=== PATIENT | female | born 1955 | race Two or more races ===

== ENCOUNTER 2018-11-25 10:21 | Emergency (ER) | payer SELFPAY ==
[2018-11-25 10:26] VITALS: BMI 20.7
[2018-11-25] MEDS ORDERED: ACETAMINOPHEN 1000 MG/100 ML VIAL (NON FORMULARY) IVPB ONE (10:57)
[2018-11-25] MEDS ORDERED: SODIUM CHLORIDE 1,000 ML IV STA (10:57)
--- NOTE | 2018-11-25 11:38 | PDOC ---
Documentation entered by Heather Gagnon SCRIBE, acting as scribe for Arun Flores MD. Arun Flores MD: This documentation has been prepared by the Kalin lópez Sammi, SCRIBE, under my direction and personally reviewed by me in its entirety. I confirm that the documentation accurately reflects all work, treatment, procedures, and medical decision making performed by me. History of Present Illness - General Chief Complaint: Pain, Acute Stated Complaint: ABD. PAIN Time Seen by Provider: 11/25/18 10:38 - History of Present Illness Initial Comments: 11/25/18 10:58 The patient is a 63 year old female who presents to the emergency department for evaluation of constant left sided abdominal pain for 3 days. Pt reports subjective fever. Denies nausea, vomiting, or diarrhea. Denies urinary changes. The patient also reports diffuse bodyaches. Denies chest pain or SOB. The patient was first evaluated at [address] [place] [address] and was sent to the ED for further testing. No prior abdominal surgeries. No flank pain. Denies TREVIÑO/neck pain. PCP: [address] [place] [address] Medical history: DM, HTN Allergies: NKA Past History - Past Medical History Allergies/Adverse Reactions: Allergies Allergy/AdvReac Type Severity Reaction Status Date / Time No Known Allergies Allergy Verified 11/25/18 10:28 Home Medications: Ambulatory Orders Alogliptin Benzoate [Alogliptin] 25 mg PO DAILY 11/25/18 Glipizide 0 mg PO BID 11/25/18 COPD: No Diabetes: Yes - Suicide/Smoking/Psychosocial Hx Smoking History: Never smoked Hx Alcohol Use: No Drug/Substance Use Hx: No Review of Systems - Review of Systems Comments:: 11/25/18 10:59 GENERAL/CONSTITUTIONAL: (+)subjective fever. No weakness. HEAD, EYES, EARS, NOSE AND THROAT: No change in vision. No ear pain or discharge. No sore throat. CARDIOVASCULAR: No chest pain, no shortness of breath, no loss of consciousness RESPIRATORY: No cough, wheezing, or hemoptysis. GASTROINTESTINAL: (+) abdominal pain. No nausea, vomiting, diarrhea or constipation. GENITOURINARY: No dysuria, frequency, or change in urination. MUSCULOSKELETAL: (+) bodyaches SKIN: No rash NEUROLOGIC: No vertigo, no change in strength/sensation. *Physical Exam - Vital Signs Last Vital Signs Temp Pulse Resp BP Pulse Ox 102.1 F H 103 H 16 150/64 100 11/25/18 10:23 11/25/18 10:23 11/25/18 10:23 11/25/18 10:23 11/25/18 10:23 - Physical Exam Comments: 11/25/18 12:27 GENERAL: Awake, alert, and fully oriented, in no acute distress. HEAD: No signs of trauma EYES: PERRLA, EOMI, sclera anicteric, conjunctiva clear ENT: Auricles normal inspection, hearing grossly normal, nares patent, oropharynx clear without exudates. Moist mucosa NECK: Nontender, no stepoffs, Normal ROM, supple, no lymphadenopathy, JVD, or masses LUNGS: Breath sounds equal, clear to auscultation bilaterally. No wheezes, and no crackles HEART: Regular rate and rhythm, normal S1 and S2, no murmurs, rubs or gallops ABDOMEN: + RLQ TTP, normoactive bowel sounds. No guarding, no rebound. No masses EXTREMITIES: Normal range of motion, no edema. No clubbing or cyanosis. No cords, erythema, or tenderness NEUROLOGICAL: Cranial nerves II through XII intact. 5/5 strength and sensation in all extremities, Normal speech, normal gait, normal cerebellar function SKIN: Warm, Dry, normal turgor, no rashes or lesions noted. ED Treatment Course - LABORATORY CBC & Chemistry Diagram: 11/25/18 11:48 11/25/18 11:48 Medical Decision Making - Medical Decision Making 11/25/18 12:27 63 F with abdominal pain. Pt febrile in ED. Exam notable for RLQ tenderness. - Labs, cultures - CTAP 11/25/18 16:28 UA consistent with UTI Labs otherwise wnl CT shows likely cystitis Will DC with abx Pt is well appearing, with normal vitals. Clinically stable for DC at this time. I discussed the physical exam findings, ancillary test results and final diagnoses with the patient. I answered all of the patient's questions. The patient was satisfied with the care received and felt comfortable with the discharge plan and treatment plan. The patient agrees to follow up with the primary care physician within 24-72 hours. *DC/Admit/Observation/Transfer Diagnosis at time of Disposition: Abdominal pain, Fever, UTI (urinary tract infection) - Discharge Dispostion Disposition: HOME - Referrals - Patient Instructions Printed Discharge Instructions: DI for Urinary Tract Infection (UTI) Additional Instructions: You have a urine infection. Take the antibiotics as prescribed to treat it. If you experience worsening abdominal pain, fevers, vomiting, or any other concerning symptoms, return to the ER immediately. Otherwise, follow up with your primary doctor within 48 hours. - Post Discharge Activity - Attestations Physician Attestion: 11/25/18 16:32 I, Dr. Arun Flores MD, attest that this document has been prepared under my direction and personally reviewed by me in its entirety. I further attest, that it accurately reflects all work, treatment, procedures and medical decision -making performed by me.
[2018-11-25] MEDS ORDERED: ACETAMINOPHEN INJECTION 100 ML IVPB ONE (11:59)
[2018-11-25 12:55] LABS: BASO % 0.8 % (0-2.0); HEMATOCRIT 39.3 % (32.4-45.2); HEMOGLOBIN 13.3 GM/dL (10.7-15.3); LYMPH % 16.3 % (8-40); MCH 29.5 pg (25.7-33.7); MCHC 33.9 g/dl (32.0-36.0); MEAN CELL VOLUME 86.9 fl (80-96); MEAN PLT VOLUME 8.4 fl (7.5-11.1); MONO % 5.6 % (3.8-10.2); NEUT % 77.3 % (42.8-82.8); PLATELET COUNT 299 K/MM3 (134-434); RBC 4.52 M/mm3 (3.60-5.2); RDW 13.3 % (11.6-15.6); WHITE BLOOD COUNT 10.8 K/mm3 (4.0-10.0)
[2018-11-25 13:01] LABS: EPI CELLS 0.3 /HPF (0-5/HPF); HYALINE CASTS 1 /lpf (0-8); PH,URINE 5.5 (5.0-8.0); URINE APPEARANCE CLOUDY; URINE BACTERIA 741.4 /hpf (NEGATIVE); URINE BILIRUBIN NEGATIVE (NEGATIVE); URINE COLOR YELLOW; URINE GLUCOSE (UA) 3+ (NEGATIVE); URINE KETONE NEGATIVE (NEGATIVE); URINE LEUK ESTERASE 2+ (NEGATIVE); URINE NITRITE NEGATIVE (NEGATIVE); URINE PROTEIN NEGATIVE (NEGATIVE); URINE RBC 3 /hpf (0-4); URINE UROBILINOGEN 0.2 mg/dL (0.2-1.0); URINE WBC 116 /hpf (0-5)
[2018-11-25 13:25] LABS: ALBUMIN 3.3 g/dl (3.4-5.0); ALK PHOS 84 U/L (45-117); ANION GAP 9 MMOL/L (8-16); BILIRUBIN,TOTAL 0.5 mg/dL (0.2-1); BLOOD UREA NITROGEN 11.7 mg/dL (7-18); CALCIUM 8.7 mg/dL (8.5-10.1); CHLORIDE 98 mmol/L (98-107); CO2 24 mmol/L (21-32); CREATININE 0.9 mg/dL (0.55-1.3); GLUCOSE,RANDOM 231 mg/dL (74-106); LIPASE 160 U/L (73-393); POTASSIUM 4.2 mmol/L (3.5-5.1); SGOT/AST 23 U/L (15-37); SGPT/ALT 33 U/L (13-61); SODIUM 132 mmol/L (136-145); TOT PROT 7.4 g/dl (6.4-8.2)
[2018-11-25] MEDS ORDERED: CEPHALEXIN MONOHYDRATE 500 MG CAPSULE (UD) PO ONE (16:33)
[2018-11-25] MEDS ORDERED: CEPHALEXIN MONOHYDRATE 500 MG CAPSULE (UD) ONE (16:49)
[2018-11-25 17:13] VITALS: BP 116/79; PULSE 75; TEMP 98.9
--- NOTE | 2018-11-25 21:18 | EKG ---
Test Reason : Blood Pressure : / mmHG Vent. Rate : 097 BPM Atrial Rate : 097 BPM P-R Int : 132 ms QRS Dur : 080 ms QT Int : 344 ms P-R-T Axes : 035 030 038 degrees QTc Int : 436 ms NORMAL SINUS RHYTHM T WAVE ABNORMALITY, CONSIDER ANTERIOR ISCHEMIA ABNORMAL ECG NO PREVIOUS ECGS AVAILABLE Confirmed by SIENA PEREZ MD ([id number]) on 11/25/2018 9:18:18 PM Referred By: Confirmed By:SIENA PEREZ MD
== END 2018-11-25 17:00 | disposition home or self-care (01) ==
LOC: JER 10:21
PROC: 3E033NZ Introduction of Analgesics, Hypnotics, Sedatives into Peripheral Vein, Percutaneous Approach (ICD-10-PCS; principal; 2018-11-25)
DX: N39.0 Urinary tract infection, site not specified (principal); B96.89 Other specified bacterial agents as the cause of diseases classified elsewhere
CPT/HCPCS: 36415; 74177-TC; 80053; 81003; 82550; 83605; 83690; 84484; 85025; 87040; 87086; 87186; 93005; 93010; 99284-25; J0131; J7030

== ENCOUNTER 2018-11-26 13:17 | Emergency (ER) | payer SELFPAY ==
[2018-11-26 13:26] VITALS: BMI 23.0
--- NOTE | 2018-11-26 13:26 | PDOC ---
Rapid Medical Evaluation Medical Evaluation: Allergies Allergy/AdvReac Type Severity Reaction Status Date / Time No Known Allergies Allergy Verified 11/25/18 10:28 11/26/18 13:21 I have performed a brief in-person evaluation of this patient. The patient presents with a chief complaint of: called back for Gram Neg Bacilli in blood culture with dx of UTI. Currently dizzy Pertinent physical exam findings: Lungs CTAB. EOMI. PERRLA. I have ordered the following: labs, blood cx The patient will proceed to the ED for further evaluation. Discharge Disposition - Diagnosis Positive blood culture - Referrals - Patient Instructions - Post Discharge Activity
--- NOTE | 2018-11-26 14:36 | PDOC ---
History of Present Illness - General Chief Complaint: Revisit, Lab Variance Stated Complaint: POSITIVE BLOOD CULTURE Time Seen by Provider: 11/26/18 13:23 History Source: Patient Exam Limitations: No Limitations - History of Present Illness Initial Comments: 11/26/18 14:34 63y F hx of dm, htn, was in the ED yesterday for evaluation of subjective feve and L sided abd pain and dx with UTI, today, she was notified that her blood culture was positive and that she should return to the ER for evaluation and possible IV abx. Pt states she feels ewll, denies any abd pain, dysuria, back pain, fever/chills (though took motrin at 8am), cp, sob, palpiations, cough, n/ v. Pt does endorse feeling alilte lightheaded when he stands up. PCP: Mariza gutiérrez Medical history: DM, HTN Allergies: NKA ROS: Constitutional - no reported Fever, Chills, HEENT: no reported vision changes, sore throat Respiratory: no reported cough, sob, hemoptysis Cardiac: no reported chest pain, palpitations, light headedness, leg swelling Abd/GI: no reported abd pain, nausea, vomiting, blood per rectum, melena, diarrhea : no reported dysuria, frequency, discharge Musculskelatal - no reported back pain, joint swelling skin - no reported bruising, erythema, rash neurological: no reported headache, numbness, focal weakness, tingling, ataxia, hematologic: no reported easy bruising, easy bleeding Physical Exam: GENERAL: The patient is awake, alert, and fully oriented, Nontoxic - in no acute distress. HEAD: Normocephalic, atraumatic. EYES: extraocular movements intact, sclera anicteric, conjunctiva clear. ENT: Normal voice, Moist mucous membranes. NECK: Normal range of motion, supple LUNGS: Breath sounds equal, clear to auscultation bilaterally. No wheezes, no rhonchi, no rales. HEART: Regular rate and rhythm, normal S1 and S2 without murmur, rub or gallop. ABDOMEN: Soft, nontender, . No guarding, no rebound. No CVA tenderness EXTREMITIES: Normal range of motion, no edema. NEUROLOGICAL: No facial assymetry, Normal speech, PSYCH: Normal mood, normal affect. SKIN: Warm, Dry, normal turgor, Pt was evaluated in E - had lab work drawn as pt is otherwise feeling well without fever, othe rsystemic complaints will rcheck labs and blood cultures - if neg will dc the to continue abx Past History - Past Medical History Allergies/Adverse Reactions: Allergies Allergy/AdvReac Type Severity Reaction Status Date / Time No Known Allergies Allergy Verified 11/26/18 13:26 Home Medications: Ambulatory Orders Alogliptin Benzoate [Alogliptin] 25 mg PO DAILY 11/25/18 Cephalexin [Keflex] 500 mg PO BID #14 capsule 11/25/18 Glipizide 0 mg PO BID 11/25/18 COPD: No Diabetes: Yes Other medical history: UTI - Suicide/Smoking/Psychosocial Hx Smoking History: Never smoked Information on smoking cessation initiated: No Hx Alcohol Use: No Drug/Substance Use Hx: No *Physical Exam - Vital Signs Last Vital Signs Temp Pulse Resp BP Pulse Ox 97.3 F L 70 19 103/47 L 100 11/26/18 13:25 11/26/18 13:25 11/26/18 13:25 11/26/18 13:25 11/26/18 13:25 ED Treatment Course - LABORATORY CBC & Chemistry Diagram: 11/26/18 15:30 Medical Decision Making - Medical Decision Making 11/26/18 17:06 pts labs reviewed no leukocytosis will dc with outpatient management rpeat cultures pending return precauions pending *DC/Admit/Observation/Transfer Diagnosis at time of Disposition: Positive blood culture UTI (urinary tract infection) Qualifiers: Urinary tract infection type: site unspecified Hematuria presence: without hematuria Qualified Code(s): N39.0 - Urinary tract infection, site not specified - Discharge Dispostion Disposition: HOME Condition at time of disposition: Improved Decision to Admit order: No - Referrals Referrals: Nayan Roberts MD [Staff Physician] - - Patient Instructions Additional Instructions: Regrese al departamento de emergencias de inmediato con CUALQUIER sntoma nuevo , persistente o que empeore, incluyendo debilidad, fiebre, escalofros, dolor de espalda, nuseas, vmitos, maría corporales o cualquier otra inquietud. Miller anlisis de rusty hoy es tranquilizador, sin embargo, estamos esperando que se repitan los hemocultivos. Si estos son positivos, lo llamaremos. DEBE llamar y hacer un seguimiento con miller mdico maana para daniel evaluacin adicional de markus sntomas. Los resultados fueron discutidos con usted. Asegrese de que miller mdico revise los resultados de miller evaluacin de emergencia. Miller visita al Departamento de Emergencia no est completa sin un seguimiento con miller mdico. Return to the emergency department immediately with ANY new, persistent or worsening symptoms including weakness, fevers, chill, back pain, nausea, vomiting, body aches or any other concerns. Your blood work today is reassuring, however we are waiting for repeat blood cultures. If these are positive we will call you. You MUST call and follow up with your doctor tomorrow for further evaluation of your symptoms. Results were discussed with you. Please make sure your doctor reviews the results of your emergency evaluation. Your Emergency Department visit is not complete without a follow up with your doctor. - Post Discharge Activity
--- NOTE | 2018-11-26 14:48 | EKG ---
Test Reason : Blood Pressure : / mmHG Vent. Rate : 069 BPM Atrial Rate : 069 BPM P-R Int : 138 ms QRS Dur : 092 ms QT Int : 418 ms P-R-T Axes : 012 066 070 degrees QTc Int : 447 ms NORMAL SINUS RHYTHM T WAVE ABNORMALITY, CONSIDER ANTERIOR ISCHEMIA ABNORMAL ECG WHEN COMPARED WITH ECG OF 25-NOV-2018 11:22, NO SIGNIFICANT CHANGE WAS FOUND Confirmed by MARANDA RICHEY, JEAN MARIE ([id number]) on 11/26/2018 2:47:57 PM Referred By: Confirmed By:JEAN MARIE LOW MD
[2018-11-26 16:15] LABS: VENOUS PH 7.43 (7.31-7.41); VENOUS PO2 67.5 mmHg (28-48)
[2018-11-26 16:28] LABS: BASO % 0.8 % (0-2.0); EOS % 0.1 % (0-4.5); HEMATOCRIT 37.4 % (32.4-45.2); HEMOGLOBIN 12.4 GM/dL (10.7-15.3); LYMPH % 22.1 % (8-40); MCH 29.4 pg (25.7-33.7); MCHC 33.3 g/dl (32.0-36.0); MEAN CELL VOLUME 88.3 fl (80-96); MEAN PLT VOLUME 8.5 fl (7.5-11.1); MONO % 7.9 % (3.8-10.2); NEUT % 69.1 % (42.8-82.8); PLATELET COUNT 248 K/MM3 (134-434); RBC 4.23 M/mm3 (3.60-5.2); RDW 13.4 % (11.6-15.6); WHITE BLOOD COUNT 5.9 K/mm3 (4.0-10.0)
[2018-11-26 17:01] LABS: INR 1.06 (0.83-1.09); PROTHROMBIN TIME (PATIENT) 12.5 SEC (9.7-13.0)
[2018-11-26 17:21] LABS: ALBUMIN 3.1 g/dl (3.4-5.0); ALK PHOS 77 U/L (45-117); ANION GAP 7 MMOL/L (8-16); BILIRUBIN,TOTAL 0.3 mg/dL (0.2-1); BLOOD UREA NITROGEN 13.2 mg/dL (7-18); CALCIUM 8.8 mg/dL (8.5-10.1); CHLORIDE 99 mmol/L (98-107); CO2 26 mmol/L (21-32); CREATININE 0.9 mg/dL (0.55-1.3); GLUCOSE,RANDOM 328 mg/dL (74-106); POTASSIUM 3.9 mmol/L (3.5-5.1); SGOT/AST 25 U/L (15-37); SGPT/ALT 33 U/L (13-61); SODIUM 132 mmol/L (136-145); TOT PROT 6.6 g/dl (6.4-8.2)
[2018-11-26 17:39] VITALS: BP 144/80; PULSE 84; TEMP 98.2
== END 2018-11-26 17:38 | disposition home or self-care (01) ==
LOC: JER 13:17
DX: N39.0 Urinary tract infection, site not specified (principal); R78.81 Bacteremia; B96.89 Other specified bacterial agents as the cause of diseases classified elsewhere
CPT/HCPCS: 36415; 80053; 82803; 83605; 84484; 85025; 85610; 85730; 87040; 93005; 93010; 99282-25